=== PATIENT | male | born 1995 | race Caucasian/White ===

== ENCOUNTER 2021-04-20 12:58 | Emergency (ER) | payer BC ==
[~2021-04-20] VITALS: Ht 180.3 cm; Wt 91.0 kg
[2021-04-20 13:11] VITALS: BP 109/72
== END 2021-04-20 15:53 | disposition home or self-care (01) ==
LOC: ER 12:58
DX: U07.1 COVID-19 (principal)
CPT/HCPCS: 93005; 99284; C9803; U0003; U0005

== ENCOUNTER 2021-07-01 09:18 | Emergency (ER) | payer BC ==
[~2021-07-01] VITALS: Ht 182.9 cm; Wt 86.0 kg
[2021-07-01 09:33] VITALS: BP 140/99
[2021-07-01] MEDS ORDERED: KETOROLAC 30MG/ML VIAL IM ONE (10:45)
[2021-07-01] MEDS ORDERED: CYCLOBENZAPRINE 10MG TABLET PO ONE (10:45)
[2021-07-01] MEDS ORDERED: NAPR-1176 MT (10:50)
[2021-07-01] MEDS ORDERED: CYCL5TAB MT (10:50)
== END 2021-07-01 11:38 | disposition home or self-care (01) ==
LOC: ER 09:18
DX: M54.50 Low back pain, unspecified (principal)
CPT/HCPCS: 96372; 99283; J1885

== ENCOUNTER 2021-07-05 01:38 | Emergency (ER) | payer BC ==
[~2021-07-05] VITALS: Ht 182.9 cm; Wt 87.0 kg
[~2021-07-05 01:38] MED LIST: CYCL5TAB MT; NAPR-1176 MT
[2021-07-05 02:27] VITALS: BP 144/84
[2021-07-05] MEDS ORDERED: KETOROLAC 60MG/2ML VIAL IM ONE (02:30)
[2021-07-05] MEDS ORDERED: PREDNISONE 20MG TABLET PO ONE (02:30)
[2021-07-05] MEDS ORDERED: METH-653 MT (02:51)
[2021-07-05] MEDS ORDERED: P20 MT (02:51)
== END 2021-07-05 03:10 | disposition home or self-care (01) ==
LOC: ER 01:38
DX: S39.012A Strain of muscle, fascia and tendon of lower back, initial encounter (principal); Z98.890 Other specified postprocedural states; Y99.0 Civilian activity done for income or pay; Y93.89 Activity, other specified; Y92.89 Other specified places as the place of occurrence of the external cause
CPT/HCPCS: 96372; 99283; J1885; J7512